=== PATIENT | male | born 1930 | race Caucasian/White ===

== ENCOUNTER 2018-10-21 12:27 | Outpatient (CLI) | payer MEDICARE | END 2018-10-21 12:28 | disposition home or self-care (01) | LOC: BUREKG 12:27 | PROVIDERS: ATTEND Family Medicine | DX: I48.91 Unspecified atrial fibrillation (principal) | CPT/HCPCS: 93005; 93010 ==

== ENCOUNTER 2018-11-18 08:18 | Emergency (ER) | payer MEDICARE ==
[2018-11-18 09:38] LABS: #Eosinphils 0.1 thou/uL (0.0-0.7); #Lymphocytes 0.8 thou/uL (1.20-3.40); #Monocytes 0.6 thou/uL (0.11-0.59); #Neutrophils 4.5 thou/uL (1.40-6.50); %Basophils 0.7 % (0.0-1.0); %Eosinophils 2.3 % (0.0-10.0); %Lymphocytes 13.2 % (21.0-51.0); %Monocytes 9.6 % (0.0-10.0); %Neutrophils 74.1 % (42.0-75.0); Hemoglobin 12.9 g/dL (14.0-18.0); Mean Corpuscular HGB CONC 30.6 g/dL (32.0-36.0); Mean Corpuscular Hemoglobin 26.8 pg (27.0-31.0); Mean Corpuscular Volume 87.7 fL (78.0-98.0); Mean Platelet Volume 6.3 fL (7.4-10.4); Platelet Count 159 thou/uL (130-400); RBC Distribution Width 14.5 % (11.5-14.5); White Blood Cell (WBC) Count 6.1 thou/uL (4.8-10.8)
[2018-11-18 09:52] LABS: ALT (SGPT) 10 U/L (8-55); AST (SGOT) 15 U/L (5-34); Alkaline Phosphatase 70 U/L (40-150); Anion Gap 14 mmol/L (10-20); BUN (Urea Nitrogen) 9 mg/dL (8.4-25.7); Calc. Creatinine Clearance 0 mL/min (70-130); Calcium 9.4 mg/dL (7.8-10.44); Carbon Dioxide 25 mmol/L (23-31); Chloride 103 mmol/L (98-107); Estimated GFR-MDRD 70; Globulin 3.2 g/dL (2.4-3.5); Glucose 123 mg/dL (83-110); Potassium 4.1 mmol/L (3.5-5.1); Protein, Total 7.2 g/dL (5.8-8.1); Sodium 138 mmol/L (136-145)
[2018-11-18] MEDS ORDERED: Benzonatate 100 MG CAP ONE (10:04)
--- NOTE | 2018-11-18 16:14 | RAD ---
CHEST TWO VIEWS: 11/18/2018 FINDINGS: The lungs are hyperexpanded. The heart is normal in size. The cardiac pacer is in place. The aorta is mildly dilated and calcified. There is no vascular congestion, edema, or pleural effusion. Some scarring is noted in the right upper lobe. There might be some scarring in the left base as well. IMPRESSION: No definite acute findings. POS: HOME
== END 2018-11-18 10:12 | disposition home or self-care (01) ==
LOC: BURERS 08:18
DX: J20.9 Acute bronchitis, unspecified (principal); J90 Pleural effusion, not elsewhere classified; I10 Essential (primary) hypertension
CPT/HCPCS: 36415; 71046; 80053; 85025

== ENCOUNTER 2018-11-29 13:25 | Emergency (ER) | payer MEDICARE ==
--- NOTE | 2018-11-29 17:56 | RAD ---
CHEST TWO VIEWS 11/29/18 PA and lateral views are compared with the 11/18/18 study. There has been no adverse change. The heart size is stable and there is no congestive failure. Calcification is seen in the aortic arch. A cardia c pacer is in place. No acute infiltrates are appreciated. Minimal haziness in the left costophrenic angle seems no different than before and is more likely chronic than not. IMPRESSION: No definite acute findings. POS: HOME
== END 2018-11-29 14:09 | disposition home or self-care (01) ==
LOC: BURERS 13:25
DX: J10.1 Influenza due to other identified influenza virus with other respiratory manifestations (principal)
CPT/HCPCS: 71046; 87804

== ENCOUNTER 2018-12-31 11:50 | Emergency (ER) | payer MEDICARE ==
[2018-12-31 12:12] LABS: #Eosinphils 0.1 thou/uL (0.0-0.7); #Lymphocytes 0.8 thou/uL (1.20-3.40); #Monocytes 0.2 thou/uL (0.11-0.59); #Neutrophils 2.5 thou/uL (1.40-6.50); %Basophils 0.7 % (0.0-1.0); %Eosinophils 3.7 % (0.0-10.0); %Neutrophils 67.6 % (42.0-75.0); Hemoglobin 13.9 g/dL (14.0-18.0); Mean Corpuscular HGB CONC 30.5 g/dL (32.0-36.0); Mean Corpuscular Hemoglobin 26.7 pg (27.0-31.0); Mean Corpuscular Volume 87.5 fL (78.0-98.0); Mean Platelet Volume 7.1 fL (7.4-10.4); Platelet Count 151 thou/uL (130-400); RBC Distribution Width 16.2 % (11.5-14.5); Red Blood Cell (RBC) Count 5.21 mill/uL (4.70-6.10); White Blood Cell (WBC) Count 3.6 thou/uL (4.8-10.8)
[2018-12-31 12:16] LABS: MDiff Complete? YES
--- NOTE | 2018-12-31 12:17 | RAD ---
EXAM: XR Chest 1 View Portable PROVIDED CLINICAL HISTORY: Chest pain COMPARISON: 11/29/2018 FINDINGS: The cardiac silhouette is within normal limits. Vascular calcification involves the aortic arch. Left subclavian cardiac pacing device is redemonstrated with lead tips in similar positions. Left basilar pleural and/or parenchymal opacity cannot be excluded. Emphysematous changes are suspected. N o evidence for pneumothorax. IMPRESSION: Possible left basilar pleural and/or parenchymal opacity. Correlation with lateral view recommended.
[2018-12-31 12:29] LABS: ALT (SGPT) 9 U/L (8-55); AST (SGOT) 18 U/L (5-34); Albumin 4.1 g/dL (3.4-4.8); Alkaline Phosphatase 66 U/L (40-150); Anion Gap 15 mmol/L (10-20); BUN (Urea Nitrogen) 12 mg/dL (8.4-25.7); Bilirubin, Total 0.7 mg/dL (0.2-1.2); Calc. Creatinine Clearance 0 mL/min (70-130); Calcium 9.6 mg/dL (7.8-10.44); Carbon Dioxide 27 mmol/L (23-31); Chloride 106 mmol/L (98-107); Estimated GFR-MDRD 78; Globulin 3.4 g/dL (2.4-3.5); Glucose 152 mg/dL (83-110); Potassium 3.9 mmol/L (3.5-5.1); Protein, Total 7.5 g/dL (5.8-8.1); Sodium 144 mmol/L (136-145)
--- NOTE | 2018-12-31 12:54 | CT ---
EXAM: CTA of the chest and abdomen HISTORY: History of thoracic aneurysm with right chest pain COMPARISON: None TECHNIQUE: Multiple contiguous axial images were obtained a CTA of the chest and abdomen with contras t per aortic dissection protocol. Sagittal and coronal 3-D MIP reformats were performed. FINDINGS: HEART: Normal in size without focal cardiac abnormality. Pacemaker leads are seen in the right atrium and ventricle. PULMONARY ARTERIES: Normal in caliber without filling defects to suggest pulmonary emboli. MEDIASTINUM: No hilar or mediastinal lymphadenopathy. LUNGS: No focal infiltrates or masses. PLEURAL SPACE: No pleural effusion or pneumothorax. CHEST AND ABDOMINAL WALL SOFT TISSUES: Unremarkable LIVER: Unremarkable. GALLBLADDER: Calcified gallstone. KIDNEYS: Unremarkable. SPLEEN: Unremarkable. PANCREAS: Unremarkable. BOWEL: Unremarkable. Normal appendix. RETROPERITONEUM: No lymphadenopathy BONES: Degenerative changes in the spine. ASCENDING THORACIC AORTA: Normal caliber without evidence of dissection or aneurysmal dilatation. DESCENDING THORACIC AORTA: Diffuse enlargement measuring up to 4.9 cm in size without evidence of di ssection. ABDOMINAL AORTA: Aneurysmal dilatation of the infrarenal aorta extending down to the bifurcation. The aorta measures 6.8 cm in maximum AP and 6.4 cm in maximum transverse dimensions. No dissection or leak are seen. Mural thrombus is seen within the aneurysm. CELIAC TRUNK: Patent SMA: Patent JENNIFER: Patent RENAL ARTERIES: Bilateral single renal arteries without significant atherosclerotic disease IMPRESSION: 1. Aortic aneurysm as above without evidence of dissection or leak. 2. Cholelithiasis
[2018-12-31 16:09] LABS: Troponin I 0.012 ng/mL (< 0.028)
[2018-12-31] MEDS ORDERED: Aspirin Chewable 81 MG TAB ONE (18:16)
== END 2018-12-31 18:22 | disposition short-term general hospital (02) ==
LOC: BURERS 11:50
DX: I71.4 Abdominal aortic aneurysm, without rupture (principal); I71.2 Thoracic aortic aneurysm, without rupture; I10 Essential (primary) hypertension; Z87.891 Personal history of nicotine dependence
CPT/HCPCS: 71045; 71275; 80053; 83880; 84484; 85025; 85379; 93005

== ENCOUNTER 2019-11-04 14:30 | Emergency (ER) | payer MEDICARE ==
[~2019-11-04 14:30] MED LIST: Iopamidol 370 76% 100 ML VIAL ONE
[2019-11-04 15:02] LABS: #Eosinphils 0.2 thou/uL (0.0-0.7); #Lymphocytes 0.9 thou/uL (1.20-3.40); #Monocytes 0.3 thou/uL (0.11-0.59); #Neutrophils 2.8 thou/uL (1.40-6.50); %Basophils 0.7 % (0.0-1.0); %Lymphocytes 21.3 % (21.0-51.0); %Monocytes 8.1 % (0.0-10.0); %Neutrophils 65.9 % (42.0-75.0); Hemoglobin 13.4 g/dL (14.0-18.0); Mean Corpuscular HGB CONC 29.2 g/dL (32.0-36.0); Mean Corpuscular Hemoglobin 26.9 pg (27.0-31.0); Mean Corpuscular Volume 92.2 fL (78.0-98.0); Mean Platelet Volume 7.8 fL (7.4-10.4); Platelet Count 129 thou/uL (130-400); RBC Distribution Width 14.7 % (11.5-14.5); Red Blood Cell (RBC) Count 4.98 mill/uL (4.70-6.10); White Blood Cell (WBC) Count 4.3 thou/uL (4.8-10.8)
[2019-11-04 15:03] LABS: Prothrombin Time 13.2 sec (12.0-14.7)
--- NOTE | 2019-11-04 15:05 | CT ---
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 COMPARISON: None. FINDINGS: There is generalized cerebral and cerebellar atrophy. Septum pellucidum and third ventricle are midli ne. There are small remote lacunar infarctions involving the right cerebellar hemisphere. There is mi ld chronic small vessel white matter ischemic change. Mastoid air cells and paranasal sinuses are hector ar. IMPRESSION: 1. No acute intracranial abnormality. 2. Mild chronic small vessel white matter ischemic change with remote small lacunar infarction i nvolving the right cerebellar hemisphere. 3. Mild generalized cerebral and cerebellar atrophy. 4. Findings called to Dr. Chang at 2:59 p.m. on 10/25/19. POS: [facility]
[2019-11-04 15:13] LABS: ALT (SGPT) 12 U/L (8-55); AST (SGOT) 23 U/L (5-34); Alkaline Phosphatase 52 U/L (40-110); Anion Gap 14 mmol/L (10-20); BUN (Urea Nitrogen) 16 mg/dL (8.4-25.7); Bilirubin, Total 0.8 mg/dL (0.2-1.2); Calc. Creatinine Clearance 0 mL/min (70-130); Calcium 9.1 mg/dL (7.8-10.44); Carbon Dioxide 28 mmol/L (23-31); Chloride 104 mmol/L (98-107); Estimated GFR-MDRD 64; Glucose 130 mg/dL (83-110); Sodium 142 mmol/L (136-145)
[2019-11-04 15:20] LABS: Platelet Morphology Comment Appears Adequate; RBC Morphology Normal
[2019-11-04] MEDS ORDERED: Aspirin Chewable 81 MG TAB ONE (15:40)
--- NOTE | 2019-11-04 16:16 | CT ---
EXAM: CT ANGIOGRAM OF THE HEAD AND NECK INDICATION: Stroke COMPARISON: None TECHNIQUE: CT angiogram of the head and neck are performed in the axial plane. Three-dimensional refo rmatted images are submitted for interpretation. FINDINGS: CTA OF THE HEAD WITH AND WITHOUT CONTRAST: POSTCONTRAST CT OF BRAIN: Pathologic enhancement: No pathologic enhancement the brain. Postcontrast soft tissue neck CT: Aerodigestive tract:Aerodigestive tract is patent. No mucosal abnormality. Sinuses: Adequate aeration. Orbits: Bilateral ocular lens implants are appropriately located. Both globes are intact. Retrobulbar fat is preserved. Symmetric attenuation the optic nerves and ocular rectus muscles Salivary glands:Symmetric attenuation of the parotid and submandibular glands Thyroid gland: Appropriate attenuation of the thyroid gland Lymph nodes: No evidence of lymphadenopathy by size criteria. Paraspinal muscles: Symmetric attenuation of the sternocleidomastoid muscles. Appropriate attenuation of the paraspinal muscles. Cervical spine:Vertebral body height is maintained. No fracture. No significant central canal stenosi s or significant neural foraminal narrowing. Limited evaluation by technique. Upper mediastinum and lung apices: No acute abnormality. Emphysematous changes the lung parenchyma ar e noted. CTA OF THE NECK WITH CONTRAST: Aorta: Atherosclerosis of the aorta is identified Right carotid artery: Appropriate enhancement and luminal diameter of the right innominate artery and common carotid artery origin. Appropriate enhancement and luminal diameter of the common carotid artery, carotid bifurcation and internal carotid artery. There is scattered of multifocal calcified a nd noncalcified plaque without significant stenosis based upon NASCET criteria Left carotid: There is appropriate enhancement and luminal diameter the origin left carotid artery. T he common carotid artery, bifurcation and internal cardioverter appropriate enhancement and luminal diameter. This calcified and noncalcified plaque, scattered throughout the carotid artery. No signifi cant stenosis based upon NASCET criteria Subclavian arteries:Symmetric enhancement and luminal diameter of bilateral subclavian arteries. Vertebral arteries:Poor contrast opacification. Nevertheless, no significant stenosis. Slightly large r left vertebral artery CTA OF THE BRAIN: Intracranial internal carotid arteries:Atherosclerosis involving both mastoid, cavernous and paraclin oid segments. No significant stenosis Anterior circulation: Appropriate enhancement and luminal diameter the A1 segment, proximal A2 segmen ts, left M1 segment. Mild irregularity involving the distal right M1 segment. Symmetric proximal MCA branches Intracranial vertebral arteries: Limited evaluation due to poor contrast opacification. The right harsha tebral artery appears to have a pica terminus. Left vertebral artery is the sole supplying the basilar artery. Posterior circulation: Diminutive basilar artery. Both posterior cerebral artery have origin. IMPRESSION: 1. No significant stenosis or occlusion level [place] 2. Irregularity involving the distal right M1 segment. 3. Scattered atherosclerosis throughout the cervical carotid arteries. No significant stenosis based on NASCET criteria Results of study discussed with Dr. Chang 11/04/2019 at 4:13 PM Code CR Transcribed Date/Time: 11/04/2019 4:53 PM
== END 2019-11-04 16:19 | disposition short-term general hospital (02) ==
LOC: BURERS 14:30
DX: G45.9 Transient cerebral ischemic attack, unspecified (principal); R79.89 Other specified abnormal findings of blood chemistry; I71.9 Aortic aneurysm of unspecified site, without rupture; I10 Essential (primary) hypertension; Z87.891 Personal history of nicotine dependence; Z79.899 Other long term (current) drug therapy
CPT/HCPCS: 36416; 70450; 70496; 70498; 80053; 82553; 84443; 84484; 85025; 85610; 85730; 93005; 94760; Q9967